=== PATIENT | male | born 1980 | race Caucasian/White ===

== ENCOUNTER 2017-03-31 20:03 | Emergency (ER) | payer OTHER ==
[~2017-03-31] VITALS: Ht 182.9 cm; Wt 65.3 kg
[2017-03-31 20:05] VITALS: TEMP 36.9; Ht 182.9 cm; Wt 65.3 kg
[2017-03-31] MEDS ORDERED: LORAZEPAM 1 MG TAB SL STA (21:08)
[2017-03-31 21:39] LABS: BUN/CREATININE RATIO 10.5 (10-20); CALCIUM 9.4 mg/dl (8.5-10.1); CREATININE 0.94 mg/dl (0.60-1.40); POTASSIUM 3.7 mmol/L (3.5-5.1)
[2017-03-31 21:50] LABS: THYROID STIMULATING HORMONE 0.603 uIu/ml (0.300-4.500)
[2017-03-31 22:05] LABS: URINE APPEARANCE CLEAR (CLEAR); URINE BILIRUBIN NEG (NEG); URINE COLOR YELLOW; URINE NITRITE NEG (NEG); URINE SPECIFIC GRAVITY 1.014 (1.000-1.030); UROBILINOGEN NEG (NEG)
[2017-03-31 22:23] LABS: COMPLETE YES; EOS % 0.2 %; HEMATOCRIT 48.3 % (42-52); IG% 0.2 %; LYMPH % 22.1 %; LYMPH ABS # 2.04 K/uL (1.2-3.4); MEAN CELL VOLUME 92.5 fL (80-100); MEAN CORPUSCULAR HEMOGLOBIN 33.3 pg (25-34); MEAN PLATELET VOLUME 11.6 fL (7.4-10.4); NEUT % 67.5 %; PLATELET COUNT 256 K/uL (130-400); RED BLOOD COUNT 5.22 M/uL (4.7-6.1); WHITE BLOOD COUNT 9.24 K/uL (4.8-10.8)
[2017-03-31 22:32] LABS: MANUAL MICROSCOPIC REQUIRED? NO; REVIEW REQ? NO
[2017-03-31 22:34] LABS: BENZODIAZEPINE, URINE POS (NEG); COCAINE,URINE NEG (NEG); PHENCYCLIDINE, URINE NEG (NEG)
--- NOTE | 2017-04-01 00:32 | EMERGENCY ROOM VISIT NOTE ---
History Report prepared by Salvador: Mariama Padron Under the Supervision of: Dr. Shamar Kirkland M.D. First contact with patient: 20:20 Chief Complaint: MENTAL HEALTH EVALUATION Stated Complaint: 302 History of Present Illness The patient is a 37 year old male who presents to the Emergency Room with complaints of persistent paranoia that began several days ago. Per [facility], the patient has a history of a psychotic break fifteen years ago. Luis reports that the patient is stuck in the past fifteen years ago the patient lost his girlfriend and has been stuck in the past. They report that the patient cut the wires to the TVs in their house because he felt that they were talking to him. Luis reports that the patient has not been eating and has not been sleeping. They report that a 302 warrant has been petitioned. Luis reports that there is a bed for the patient at the [facility] once he is medially cleared. Luis reports that the patient has not been compliant with his psychiatric medications and has not been caring for himself. They report that the patient has been locking himself in his bedroom and states that he feels that his house is bugged. Per the 302 petition, the patient walked into his neighbor's home and his family feels that he is a danger to them and their neighbors. The 302 petition reports that typically the patient is neat and organized, but states that he has torn his house apart. The patient states that he has been trying to ween himself off of his psychiatric medications. He admits to alcohol use a few days ago, but denies any recent medical illnesses. Pt denies LOC, headache, fevers, chills, diaphoresis, visual changes, neck pain , chest pain, breathing difficulties, nausea, vomiting, abdominal pain, back pain, melena, hematochezia, urinary symptoms, numbness, weakness, lymphadenopathy, rash, or other complaints. Source of History: patient Onset: several days ago Position: other (global) Quality: other (paranoia) Timing: other (persistent) Note: Associated Symptoms: not eating, not sleeping, not caring for himself Review of Systems See HPI for pertinent positives and negatives. A total of ten systems were reviewed and were otherwise negative. Past Medical & Surgical No pertinent history stated. Family History No pertinent family history stated. Social History Smoking Status: Current Every Day Smoker Marital Status: Occupation Status: unemployed Current/Historical Medications Unable to Obtain Active Prescriptions or Reported Meds Allergies Coded Allergies: Penicillins (Verified Allergy, Unknown, child, 03/31/17) Physical Exam Vital Signs Date Time Temp Pulse Resp B/P (MAP) Pulse Ox O2 Delivery O2 Flow Rate FiO2 03/31/17 23:34 74 20 148/104 97 Room Air 03/31/17 21:46 76 18 141/97 98 Room Air 03/31/17 20:05 36.9 104 18 142/99 94 Room Air Physical Exam GENERAL: Awake, alert, withdrawn appearing, no distress HENT: Normocephalic, atraumatic. TM's normal. Oropharynx unremarkable. EYES: PERRL. EOMI. Normal conjunctiva. Sclera non-icteric. NECK: Supple. No nuchal rigidity. FROM. No JVD or bruit. RESPIRATORY: CTA CARDIAC: RRR. No murmur. ABDOMEN: Soft, non distended. No tenderness to palpation. No rebound or guarding. No masses. MUSCULOSKELETAL: Unremarkable. No edema. No discoloration. Gross motor strength symmetric. NEURO: Cranial nerves 2-12 grossly intact. Normal sensorium. No sensory or motor deficits noted. Speech normal. No pronator drift. SKIN: No rash or jaundice noted. LYMPH: No adenopathy. PSYCH: Depressed mood. Flat affect, responding to internal stimuli, thought blocking present, insight is impaired, judgement is impaired. Negative suicidal ideation. Negative homicidal ideation. Medical Decision & Procedures Laboratory Results 03/31/17 21:59 Red Blood Count 5.22, Mean Corpuscular Volume 92.5, Mean Corpuscular Hemoglobin 33.3, Mean Corpuscular Hemoglobin Concent 36.0, Mean Platelet Volume 11.6, Neutrophils (%) (Auto) 67.5, Lymphocytes (%) (Auto) 22.1, Monocytes (%) (Auto) 10.0, Eosinophils (%) (Auto) 0.2, Basophils (%) (Auto) 0.0, Neutrophils # (Auto ) 6.24, Lymphocytes # (Auto) 2.04, Monocytes # (Auto) 0.92, Eosinophils # (Auto ) 0.02, Basophils # (Auto) 0.00 03/31/17 20:53 Test 03/31/17 20:53 03/31/17 21:30 03/31/17 21:59 Anion Gap 6.0 mmol/L (3-11) Est Creatinine Clear Calc Drug Dose 100.3 ml/min Estimated GFR () 120.4 Estimated GFR (Non- 103.9 BUN/Creatinine Ratio 10.5 (10-20) Calcium Level 9.4 mg/dl (8.5-10.1) Total Bilirubin 0.9 mg/dl (0.2-1) Direct Bilirubin 0.2 mg/dl (0-0.2) Aspartate Amino Transf (AST/SGOT) 23 U/L (15-37) Alanine Aminotransferase (ALT/SGPT) 31 U/L (12-78) Alkaline Phosphatase 62 U/L (45-117) Total Protein 7.7 gm/dl (6.4-8.2) Albumin 4.3 gm/dl (3.4-5.0) Thyroid Stimulating Hormone (TSH) 0.603 uIu/ml (0.300-4.500) Ethyl Alcohol mg/dL < 3.0 mg/dl (0-3) Urine Color YELLOW Urine Appearance CLEAR (CLEAR) Urine pH 6.0 (4.5-7.5) Urine Specific [place] 1.014 (1.000-1.030) Urine Protein NEG (NEG) Urine Glucose (UA) NEG (NEG) Urine Ketones 1+ (NEG) Urine Occult Blood NEG (NEG) Urine Nitrite NEG (NEG) Urine Bilirubin NEG (NEG) Urine Urobilinogen NEG (NEG) Urine Leukocyte Esterase NEG (NEG) Urine Opiates Screen NEG (NEG) Urine Methadone, Qualitative NEG (NEG) Urine Barbiturates NEG (NEG) Urine Phencyclidine (PCP) Level NEG (NEG) Ur Amphetamine/Methamphetamine POS (NEG) MDMA (Ecstasy) Screen NEG (NEG) Urine Benzodiazepines Screen POS (NEG) Urine Cocaine Metabolite NEG (NEG) Urine Marijuana (THC) POS (NEG) White Blood Count 9.24 K/uL (4.8-10.8) Red Blood Count 5.22 M/uL (4.7-6.1) Hemoglobin 17.4 g/dL (14.0-18.0) Hematocrit 48.3 % (42-52) Mean Corpuscular Volume 92.5 fL (80-100) Mean Corpuscular Hemoglobin 33.3 pg (25-34) Mean Corpuscular Hemoglobin Concent 36.0 g/dl (32-36) Platelet Count 256 K/uL (130-400) Mean Platelet Volume 11.6 fL (7.4-10.4) Neutrophils (%) (Auto) 67.5 % Lymphocytes (%) (Auto) 22.1 % Monocytes (%) (Auto) 10.0 % Eosinophils (%) (Auto) 0.2 % Basophils (%) (Auto) 0.0 % Neutrophils # (Auto) 6.24 K/uL (1.4-6.5) Lymphocytes # (Auto) 2.04 K/uL (1.2-3.4) Monocytes # (Auto) 0.92 K/uL (0.11-0.59) Eosinophils # (Auto) 0.02 K/uL (0-0.5) Basophils # (Auto) 0.00 K/uL (0-0.2) RDW Standard Deviation 40.0 fL (36.4-46.3) RDW Coefficient of Variation 11.8 % (11.5-14.5) Immature Granulocyte % (Auto) 0.2 % Immature Granulocyte # (Auto) 0.02 K/uL (0.00-0.02) Laboratory results reviewed by me Medications Administered Medications (Trade) Dose Ordered Sig/Satya Route Start Time Stop Time Status Last Admin Dose Admin Lorazepam (Ativan Tab) 1 mg NOW STAT SL 03/31/17 21:08 03/31/17 21:09 DC 03/31/17 21:42 1 MG ED Course 2030: The patient was evaluated in room A7. A complete history and physical exam was performed. 2107: Ordered Ativan Tab 1 mg SL. 2234: The patient is medically clear at this time. The patient will be taken to the [facility] for further psychiatric evaluation. Medical Decision Prior records/ancillary studies reviewed. Triage Nursing notes reviewed and agree them. Additional history obtained from the delegate. The patient's history was concerning for possible psychiatric disturbance. Differential diagnosis: Etiologies such as mood disorder, infection, hypoglycemia, electrolyte abnormalities, cardiac sources, intracerebral event, toxicologic, neurologic, as well as others were entertained. Physical examination: The physical examination was performed as above and was completely benign. No emergent medical pathologies were noted. ER treatment provided: Ativan. Diagnostic interpretation by me: The labs revealed an unremarkable CBC and chem panel. Urinalysis was unremarkable. Alcohol level negative. The patient had benzodiazepines and methamphetamine on his drug screen. Patient has been taking Xanax and Adderall. Imaging studies: Deferred The patient has been accepted at the [facility]. He had a signed 302 warrant. His recent history is very concerning. The patient is responding to internal stimuli, he has thought blocking, his insight and judgment are impaired. The patient needs treatment. He is not taking his medications at home. Impression Primary Impression: Thought disorder Scribe Attestation The scribe's documentation has been prepared under my direction and personally reviewed by me in its entirety. I confirm that the note above accurately reflects all work, treatment, procedures, and medical decision making performed by me. Departure Information Dispostion Mental Health Acute Care Prescriptions Unable to Obtain Active Prescriptions or Reported Meds Referrals No Doctor, Assigned (PCP)
[2017-04-01 02:11] VITALS: BP 140/78; PULSE 80; O2SAT 98
[2017-04-04 13:24] LABS: HYDROXYETHYLFLURAZEPAM CONF NEGATIVE NG/ML (CUTOFF=50); HYDROXYMIDAZOLAM NEGATIVE NG/ML (CUTOFF=50); HYDROXYTRIAZOLAM CONF NEGATIVE NG/ML (CUTOFF=50); TEMAZEPAM CONF NEGATIVE NG/ML (CUTOFF=50)
== END 2017-04-01 02:12 ==
LOC: C.EDB 20:05 → C.EDA 04-01 02:12
DX: G54.3 Thoracic root disorders, not elsewhere classified (principal); F17.200 Nicotine dependence, unspecified, uncomplicated